=== PATIENT | male | born 1950 | race Caucasian/White ===

== ENCOUNTER → 2016-12-16 | Outpatient (CLI) | payer MEDICARE, OTHER ==
[~2016-12-16] MED LIST: ADVAIR 250-501 EACH INH; COMBIVENT0.074 GM/I INH; MONTELUKAST SOD10 MG PO; NEXIUM40 MG PO; NITROSTAT 0.40.4 MG SL; OXYCODONE-ACET1 EAC1 PO; PLAVIX 75 MG TA75 MG PO; SPIRIVA18 MCG INH; TOPROL XL 25 MG25 MG PO; ZOCOR20 MG PO
== END ==
LOC: HEART 5 10:28
DX: Z01.818 Encounter for other preprocedural examination (principal); R06.02 Shortness of breath; R94.2 Abnormal results of pulmonary function studies; F17.210 Nicotine dependence, cigarettes, uncomplicated
CPT/HCPCS: 94060; 94729